=== PATIENT | male | born 1970 | race American Indian/Alaskan Native ===

== ENCOUNTER 2016-08-16 20:29 | Emergency (ER) | payer BC ==
[2016-08-16 22:03] VITALS: BP 129/89
[2016-08-17] MEDS ORDERED: MOTRIN PO ONE (00:04)
--- NOTE | 2016-08-17 00:04 | Emergency Department Report ---
ED General Adult HPI - General Chief complaint: Back Pain/Injury Stated complaint: LOWER BACK PAIN Time Seen by Provider: 08/16/16 22:29 Source: patient Mode of arrival: Ambulatory Limitations: No Limitations - History of Present Illness Initial comments: This is a 46-year-old male that presents with lower back pain for the past month. 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 Patient also stated that he has pain radiating to his left leg. Patient denies any numbness or tingling sensation. Patient denies chest pain or shortness of breath, headache, abdominal pain, abnormal gait. Patient is well-nourished. No signs of distress noted. Patient is nontoxic in appearance. -: Gradual, month(s) (1) Location: back Radiation: extremity (left leg) Severity scale (0 -10): 9 Quality: aching Consistency: constant Improves with: immobilization Worsens with: movement Associated Symptoms: denies other symptoms. denies: confusion, chest pain, cough, diaphoresis, fever/chills, headaches, loss of appetite, malaise, nausea/ vomiting, rash, seizure, shortness of breath, syncope, weakness - Related Data Previous Rx's Medication Instructions Recorded Last Taken Type Ibuprofen [Motrin 600 MG tab] 600 mg PO Q8H PRN 5 Days 08/17/16 Unknown Rx Prednisone [predniSONE] 40 mg PO QDAY 5 Days 08/17/16 Unknown Rx Allergies Allergy/AdvReac Type Severity Reaction Status Date / Time No Known Allergies Allergy Unverified 08/16/16 22:03 ED Review of Systems ROS: Stated complaint: LOWER BACK PAIN Other details as noted in HPI Constitutional: denies: chills, fever Eyes: denies: eye pain, eye discharge, vision change ENT: denies: ear pain, throat pain Respiratory: denies: cough, shortness of breath, wheezing Cardiovascular: denies: chest pain, palpitations Endocrine: no symptoms reported Gastrointestinal: denies: abdominal pain, nausea, diarrhea Genitourinary: denies: urgency, dysuria Musculoskeletal: denies: back pain, joint swelling, arthralgia Skin: denies: rash, lesions Neurological: denies: headache, weakness, paresthesias Psychiatric: denies: anxiety, depression Hematological/Lymphatic: denies: easy bleeding, easy bruising ED Past Medical Hx - Past Medical History Previous Medical History?: No - Surgical History Past Surgical History?: No - Social History Smoking Status: Never Smoker Substance Use Type: None - Medications Home Medications: Home Medications Medication Instructions Recorded Confirmed Last Taken Type Ibuprofen [Motrin 600 MG tab] 600 mg PO Q8H PRN 5 Days 08/17/16 Unknown Rx Prednisone [predniSONE] 40 mg PO QDAY 5 Days 08/17/16 Unknown Rx ED Physical Exam - General Limitations: No Limitations General appearance: alert, in no apparent distress - Head Head exam: Present: atraumatic, normocephalic - Eye Eye exam: Present: normal appearance - ENT ENT exam: Present: mucous membranes moist - Neck Neck exam: Present: normal inspection - Respiratory Respiratory exam: Present: normal lung sounds bilaterally. Absent: respiratory distress - Cardiovascular Cardiovascular Exam: Present: regular rate, normal rhythm. Absent: systolic murmur, diastolic murmur, rubs, gallop - GI/Abdominal GI/Abdominal exam: Present: soft, normal bowel sounds - Rectal Rectal exam: Present: deferred - Extremities Exam Extremities exam: Present: normal inspection - Back Exam Back exam: Present: normal inspection, full ROM. Absent: tenderness, CVA tenderness (R), CVA tenderness (L), muscle spasm, paraspinal tenderness, vertebral tenderness, rash noted - Neurological Exam Neurological exam: Present: alert, oriented X3 - Psychiatric Psychiatric exam: Present: normal affect, normal mood - Skin Skin exam: Present: warm, dry, intact, normal color. Absent: rash ED Course Vital Signs 08/16/16 21:57 Temperature 98 F Pulse Rate 66 Respiratory 18 Rate Blood Pressure 129/89 Blood Pressure 129/89 [Left] O2 Sat by Pulse 97 Oximetry ED Medical Decision Making - Medical Decision Making Ed course: 46 year old male that presents with chronic lower back pain 1- patient received Solu-Medrol IM 40 mg in the ED. For my clinical exam I believe the patient may have sciatica and I instructed the patient to follow-up with his primary care doctor for possibility of MRI. 2- patient was sent home with ibuprofen 600 mg by mouth as needed and prednisone 40 mg by mouth for 5 days. 3- at the time of discharge the patient does not seem toxic or ill in appearance. No signs of distress noted. Patient agrees to discharge treatment plan. No further questions noted by the patient. Critical care attestation.: If time is entered above; I have spent that time in minutes in the direct care of this critically ill patient, excluding procedure time. ED Disposition Clinical Impression: Lumbar radiculopathy Low back pain Qualifiers: Chronicity: chronic Back pain laterality: left Sciatica presence: unspecified whether sciatica present Qualified Code(s): M54.5 - Low back pain; G89.29 - Other chronic pain Disposition: DISCHARGED TO HOME OR SELFCARE Is pt being admited?: No Does the pt Need Aspirin: No Condition: Stable Instructions: Lumbar Radiculopathy (ED) Additional Instructions: Please follow-up with your primary care doctor in 3-5 days for possibility of MRI If symptoms worsen such as bladder or bowel stability, unbearable pain, chest pain, shortness of breath report back to emergency room. Take medications as prescribed. Prescriptions: Ibuprofen [Motrin 600 MG tab] 600 mg PO Q8H PRN 5 Days PRN Reason: Pain Prednisone [predniSONE] 40 mg PO QDAY 5 Days Referrals: PRIMARY CARE, [Primary Care Provider] - 3-5 Days [facility] [Outside] - 3-5 Days [facility] [Outside] - 3-5 Days Forms: Work/School Release Form(ED)
== END 2016-08-17 00:21 | disposition home or self-care (01) ==
LOC: ED 20:29
DX: M54.16 Radiculopathy, lumbar region (principal); G89.29 Other chronic pain
CPT/HCPCS: 96372; 99282; J2920

== ENCOUNTER 2016-10-26 03:58 | Emergency (ER) | payer BC ==
[2016-10-26] MEDS ORDERED: MORPHINE IM ONE (10:05)
[2016-10-26] MEDS ORDERED: ZOFRAN ODT PO ONE (10:05)
[2016-10-26 10:34] LABS: Basophils % (Auto) 0.6 % (0.0-1.8); Eosinophils % (Auto) 1.1 % (0.0-4.3); Hematocrit 45.3 % (35.5-45.6); Mean Corpuscular HGB Conc 33 % (32-34); Mean Corpuscular Hemoglobin 30 pg (28-32); Mean Corpuscular Volume 92 fl (84-94); Platelet Count 199 K/mm3 (140-440); Red Blood Count 4.95 M/mm3 (3.65-5.03); Red Cell Distribution Width 14.4 % (13.2-15.2); White Blood Count 6.7 K/mm3 (4.5-11.0)
[2016-10-26 10:42] LABS: INR 1.07 (0.87-1.13)
[2016-10-26 10:43] LABS: Partial Thromboplastin Time 26.3 Sec. (24.2-36.6)
[2016-10-26 10:48] LABS: Anion Gap 16 mmol/L; Blood Urea Nitrogen 12 mg/dL (9-20); Calcium 8.7 mg/dL (8.4-10.2); Carbon Dioxide 23 mmol/L (22-30); Chloride 104.4 mmol/L (98-107); Glucose 96 mg/dL (75-100); Potassium 4.1 mmol/L (3.6-5.0); Sodium 139 mmol/L (137-145)
[2016-10-26 13:46] VITALS: BP 120/78
--- NOTE | 2016-10-26 14:04 | Magnetic Resonance Report ---
MR CERVICAL SPINE WITHOUT CONTRAST HISTORY: Neck pain, radicular pain in both arms, numbness, weakness TECHNIQUE: Axial T2. Sagittal T1, T2 and STIR. FINDINGS: Correlation is made with the CT cervical spine dated 09/13/12. There are subtle areas of increased T2 intramedullary signal within the spinal cord at the levels of C3-4 and C4-5. There is no evidence for cord atrophy, mass or hemorrhage. The remainder of the cord is within normal limits. There is normal height and alignment of the cervical vertebral bodies. Normal bone marrow signal. Mild diffuse disc desiccation is identified. Facet joints are unremarkable. The spinal canal is within normal limits. No central canal stenosis. No herniation. C2-3: No abnormality. C3-4: No abnormality. C4-5: No abnormality. C5-6: A mild diffuse posterior bulging disc is identified which lateralizes to the right side. There is mild bilateral uncovertebral spurring. Bilateral neural foraminal narrowing is estimated at 50% or greater. The right neural foramen is slightly more affected. C6-7: A moderate sized right paracentral disc protrusion is identified which exerts mass effect on the right side of the thecal sac. This also results in high-grade right neural foraminal narrowing estimated at 75% or greater. C7-T1: No significant abnormality. Impression: Subtle areas of abnormal cord signal are identified at C3-4 and C4-5. This could be related to demyelination. Consider further evaluation with IV contrast. Is there a history of multiple sclerosis in this patient? Transverse myelitis could also be considered. Degenerative disc disease at C5-6 which appears relatively stable since 2012. New right paracentral disc protrusion resulting in moderate to severe right neural foraminal narrowing at C6-7.
[2016-10-26] MEDS ORDERED: DECADRON IM ONE (15:26)
--- NOTE | 2016-10-26 15:39 | Emergency Department Report ---
ED General Adult HPI - General Chief complaint: Anxiety Stated complaint: BACK PAIN Time Seen by Provider: 10/26/16 08:41 Source: patient Mode of arrival: Ambulatory Limitations: No Limitations - History of Present Illness Initial comments: Apparently the nursing staff perceive this patient had anxiety. However he gave a perfectly coherent history to me which was consistent with cervical radiculopathy. The patient states that he was at rest yesterday when he developed acute neck pain. He was not lifting or doing anything in particular. He felt the neck pain radiates down both his arms. He has some tingling in the fourth and fifth digit of both his hands. Later on in the evening he felt like he has some difficulty with the prehensile grasp of his right hand. This numbness and weakness did not persist. He was able to drive uses hands and walk without difficulty. The patient does not have any paresthesias right now either. He states that his neck pain is moderate in intensity. He has not had similar symptoms like this before although he was told that he has sciatica of his lower back. He is seen a chiropractor for treatment of lower back pain. He is not complaining of any lower mid back pain today. The patient states he does do lifting at work. He does not recall any specific injury. -: Gradual Location: neck Radiation: extremity Severity scale (0 -10): 2 Quality: aching Consistency: intermittent Improves with: none Worsens with: none Associated Symptoms: weakness (and numbness see above) Treatments Prior to Arrival: other (Motrin) - Related Data Previous Rx's Medication Instructions Recorded Last Taken Type Ibuprofen [Motrin 600 MG tab] 600 mg PO Q8H PRN 5 Days 08/17/16 Unknown Rx Prednisone [predniSONE] 40 mg PO QDAY 5 Days 08/17/16 Unknown Rx Cyclobenzaprine HCl [Flexeril 5 MG 5 mg PO TID #20 tab 10/26/16 Unknown Rx TAB] HYDROcodone/APAP 5-325 [Central 1 each PO Q6HR PRN #14 tablet 10/26/16 Unknown Rx 5/325] methylPREDNISolone [Medrol] 4 mg PO QAM #1 tab.ds.pk 10/26/16 Unknown Rx Allergies Allergy/AdvReac Type Severity Reaction Status Date / Time No Known Allergies Allergy Unverified 08/16/16 22:03 ED Review of Systems ROS: Stated complaint: BACK PAIN Other details as noted in HPI Constitutional: denies: chills, fever Eyes: denies: eye pain, eye discharge, vision change ENT: denies: ear pain, throat pain Respiratory: denies: cough, shortness of breath, wheezing Cardiovascular: denies: chest pain, palpitations Endocrine: no symptoms reported Gastrointestinal: denies: abdominal pain, nausea, diarrhea Genitourinary: denies: urgency, dysuria Musculoskeletal: as per HPI. denies: back pain, joint swelling, arthralgia Skin: denies: rash, lesions Neurological: denies: headache, weakness, paresthesias Psychiatric: denies: anxiety, depression Hematological/Lymphatic: denies: easy bleeding, easy bruising ED Past Medical Hx - Past Medical History Previous Medical History?: Yes Additional medical history: ANXIETY. Lower back pain/sciatica - Surgical History Past Surgical History?: No - Social History Smoking Status: Never Smoker Substance Use Type: None - Medications Home Medications: Home Medications Medication Instructions Recorded Confirmed Last Taken Type Ibuprofen [Motrin 600 MG tab] 600 mg PO Q8H PRN 5 Days 08/17/16 Unknown Rx Prednisone [predniSONE] 40 mg PO QDAY 5 Days 08/17/16 Unknown Rx Cyclobenzaprine HCl [Flexeril 5 MG 5 mg PO TID #20 tab 10/26/16 Unknown Rx TAB] HYDROcodone/APAP 5-325 [Central 1 each PO Q6HR PRN #14 tablet 10/26/16 Unknown Rx 5/325] methylPREDNISolone [Medrol] 4 mg PO QAM #1 tab.ds.pk 10/26/16 Unknown Rx ED Physical Exam - General Limitations: No Limitations General appearance: alert, in no apparent distress - Head Head exam: Present: atraumatic, normocephalic - Eye Eye exam: Present: normal appearance. Absent: scleral icterus - ENT ENT exam: Present: mucous membranes moist - Neck Neck exam: Present: normal inspection, tenderness (mild paravertebral no point tenderness or vertebral body tenderness.), other (no significant spasm noted). Absent: meningismus - Respiratory Respiratory exam: Present: normal lung sounds bilaterally. Absent: respiratory distress - Cardiovascular Cardiovascular Exam: Present: regular rate, normal rhythm. Absent: systolic murmur, diastolic murmur, rubs, gallop - GI/Abdominal GI/Abdominal exam: Present: soft, normal bowel sounds. Absent: distended, tenderness, guarding, rebound, rigid - Rectal Rectal exam: Present: deferred - Extremities Exam Extremities exam: Present: normal inspection - Back Exam Back exam: Present: normal inspection - Neurological Exam Neurological exam: Present: alert, oriented X3, CN II-XII intact, normal gait, reflexes normal. Absent: motor sensory deficit - Psychiatric Psychiatric exam: Present: normal affect, normal mood - Skin Skin exam: Present: warm, dry, intact, normal color. Absent: rash ED Course Vital Signs 10/26/16 10/26/16 04:01 13:45 Temperature 97.4 F L 98.5 F Pulse Rate 60 66 Respiratory 28 H 16 Rate Blood Pressure 146/93 Blood Pressure 120/78 [Left] O2 Sat by Pulse 100 Oximetry - Reevaluation(s) Reevaluation #1: The patient was given IM Toradol. His pain totally resolved. His MRI report was gone over in detail with Dr. Paul on-call for [place] [facility]. He recommended outpatient treatment and a Medrol Dosepak as well as Decadron now. He stated that the patient should go to [facility] or [facility] if he has any recurrent weakness. Patient stated that his weakness and numbness totally resolved and did not recur in the emergency department. He stated he felt much better again after the Toradol. He was given detailed instructions and return criteria. He is given a copy of his MR report and scan. Dr. Paul informed me to have him [facility] to see Dr. Blaine Padilla and the survey research professor. 10/26/16 15:44 ED Medical Decision Making - Lab Data Result diagrams: 10/26/16 10:09 10/26/16 10:09 Laboratory Results - last 24 hr 10/26/16 10/26/16 10/26/16 10:09 10:09 10:09 WBC 6.7 RBC 4.95 Hgb 15.0 Hct 45.3 MCV 92 MCH 30 MCHC 33 RDW 14.4 Plt Count 199 Lymph % (Auto) 35.4 H Garrett % (Auto) 6.7 Eos % (Auto) 1.1 Baso % (Auto) 0.6 Lymph # 2.4 Garrett # 0.4 Eos # 0.1 Baso # 0.0 Seg Neutrophils % 56.2 Seg Neutrophils # 3.8 PT 13.8 INR 1.07 APTT 26.3 Sodium 139 Potassium 4.1 Chloride 104.4 Carbon Dioxide 23 Anion Gap 16 BUN 12 Creatinine 0.6 L Estimated GFR > 60 BUN/Creatinine Ratio 20.00 Glucose 96 Calcium 8.7 C-Reactive Protein 0.20 - EKG Data EKG shows normal: sinus rhythm, axis, intervals, QRS complexes, ST-T waves Rate: bradycardia - EKG Data Interpretation: no acute changes - Radiology Data Radiology results: report reviewed interpreted by me: Cervical disc protrusion C6-C7 which is moderate mild at C5-C6. There is foraminal encroachment see report for details. Critical care attestation.: If time is entered above; I have spent that time in minutes in the direct care of this critically ill patient, excluding procedure time. ED Disposition Clinical Impression: Cervical disc herniation Disposition: - TO HOME OR SELFCARE Is pt being admited?: No Does the pt Need Aspirin: No Condition: Stable Instructions: Cervical Disc Herniation (ED) Additional Instructions: Return to the emergency department at [facility] or [facility] if you develop any recurrent weakness or numbness of your arms, difficulty urinating, walking or severe pain of your neck. Due to have a herniated disc and follow-up is essential. Call the [facility] at [phone] to make an appointment with the survey research professor/Dr. Dayron Valladares who is the spine surgeon. They have recommended the medications that I have prescribed for you. Again if you have any recurrent weakness or numbness present to the hospital for evaluation as above. They have recommended that you go there per Dr. Paul who I have talked to. The nurse will give you a copy of your MR study. Prescriptions: Cyclobenzaprine HCl [Flexeril 5 MG TAB] 5 mg PO TID #20 tab HYDROcodone/APAP 5-325 [Central 5/325] 1 each PO Q6HR PRN #14 tablet PRN Reason: Pain methylPREDNISolone [Medrol] 4 mg PO QAM #1 tab.ds.pk Referrals: PRIMARY CARE, [Primary Care Provider] - 3-5 Days Time of Disposition: 15:47
== END 2016-10-26 16:17 | disposition home or self-care (01) ==
LOC: ED 03:58
DX: M50.20 Other cervical disc displacement, unspecified cervical region (principal)
CPT/HCPCS: 36415; 72141; 80048; 85025; 85610; 85730; 86140; 93005; 93010; 96372; 99284; J1100; J2270; Q0162